=== PATIENT | male | born 1995 | race Two or more races ===

== ENCOUNTER 2023-06-20 22:14 | Observation (INO) | payer SELFPAY ==
[2023-06-20 22:18] VITALS: BP 156/68; PULSE 75; RESP 24; TEMP 36.6; O2SAT 100; BMI 53.8
[2023-06-20] MEDS: ONDANSETRON PF 4 MG/2 ML VIAL IV (22:20)
--- NOTE | 2023-06-20 22:31 | ED.NAVMDI1 ---
HPI - Nausea/Vomiting/Diarrhea General Chief complaint: Nausea/Vomiting/Diarrhea Stated complaint: Nausea/vomiting, Diarrhea Time Seen by Provider: 06/20/23 22:26 Source: patient Mode of arrival: walk-in History of Present Illness HPI Narrative: ate burger at [facility]. Ate the burger about an hour ago. Started vomiting after eating it. Also few episodes of diarrhea . Has abdominal cramping. No fever. Past history of cholecystectomy. Otherwise healthy Related Data Previous Rx's ?Medication ?Instructions ?Recorded hyoscyamine sulfate 0.125 mg 0.125 mg PO QID PRN abdominal pain 06/21/23 sublingual tablet (Levsin/SL) #30 tabs omeprazole 40 mg capsule,delayed 40 mg PO DAILY #30 caps 06/21/23 release promethazine 25 mg tablet 25 mg PO Q6H PRN nausea and 06/21/23 vomiting #30 tabs Allergies Allergy/AdvReac Type Severity Reaction Status Date / Time No Known Drug Allergies Allergy Verified 06/20/23 22:27 Review of Systems ROS Status of ROS 10 or more systems reviewed and unremarkable except as noted in history and below [facility] Medical History (Updated 06/21/23 @ 11:14 by Dino Swanson MD) Elevated WBC count ?D72.829 - Elevated white blood cell count, unspecified (ICD-10) Lactate blood increase ?R79.89 - Other specified abnormal findings of blood chemistry (ICD-10) Acute hypokalemia ?E87.6 - Hypokalemia (ICD-10) Surgical History (Updated 06/21/23 @ 05:04 by Mckenzie Jo RN) H/O chest tube placement ?Z98.890 - Other specified postprocedural states (ICD-10) History of cholecystectomy ?Z90.49 - Acquired absence of other specified parts of digestive tract (ICD-10) Social History (Updated 06/21/23 @ 05:07 by Mckenzie Jo, ELIZABETH) Within the past year, how often did you have a drink containing alcohol: monthly or less Non-prescribed substance use: cannabis (any form) Highest level of school completed/degree received: GED or equivalent Exam Constitutional Vital Signs, click to edit/add: Last Vital Signs Temp 100.4 F 06/21/23 12:00 Pulse 89 06/21/23 12:00 Resp 18 06/21/23 12:00 BP 147/77 H 06/21/23 12:00 Pulse Ox 96 06/21/23 12:00 O2 Del Method Room Air 06/21/23 12:00 Common normals: no apparent distress, average body habitus, oriented x3, no limitations, healthy appearing, alert and well nourished [facility] Common normals: normocephalic and head/scalp atraumatic Eye Common normals: PERRL, EOMs intact bilaterally and conjunctivae normal Respiratory Common normals: normal respiratory effort, no retractions, no use of accessory muscles and clear to auscultation bilaterally Cardio Common normals: regular rate, regular rhythm, S1 normal heart sound and S2 normal heart sound GI Common normals: Normal to inspection, nondistended, normoactive bowel sounds present and soft to palpation Extremity Common normals: normal to inspection and full ROM Neuro Common normals: oriented x3, CN's II-XII intact bilaterally, moves all extremities and no focal motor deficits Psych Appearance: grossly normal Course Vital Signs Vital signs: Vital Signs Temperature 97.9 F 06/20/23 22:18 Pulse Rate 75 06/20/23 22:18 Respiratory Rate 24 06/20/23 22:18 Blood Pressure 156/68 H 06/20/23 22:18 Pulse Oximetry 100 06/20/23 22:18 Oxygen Delivery Method Room Air 06/20/23 22:18 Temperature 100.4 F 06/21/23 12:00 Pulse Rate 89 06/21/23 12:00 Respiratory Rate 18 06/21/23 12:00 Blood Pressure 147/77 H 06/21/23 12:00 Pulse Oximetry 96 06/21/23 12:00 Oxygen Delivery Method Room Air 06/21/23 12:00 MDM - Nausea/Vomiting/Diarrhea MDM Narrative Medical decision making narrative: patient presents with abdominal cramping pain and recurrent vomiting. CT with mild enteritis. states symptoms started after eating hamburger at [employer]. Remains nauseated with vomiting after several treatments with anti emetics. Discussed with the hospitalist and will plan obs admission Lab Data Labs: Lab Results 06/20/23 06/20/23 06/20/23 Range/Units 22:36 23:30 23:36 WBC 11.6 H (4.0-11.0) 10^3/uL RBC 5.13 (4.70-6.10) 10^6/uL Hgb 15.1 (14.0-18.0) g/dL Hct 44.8 (42.0-54.0) % MCV 87.3 (80.0-94.0) fL MCH 29.4 (25.9-34.0) pg MCHC 33.7 (29.9-35.2) g/dL RDW 12.5 (11.0-15.0) % Plt Count 278 (150-450) 10^3/uL MPV 11.0 (9.5-13.5) fL Neut % (Auto) 70.3 (43.0-75.0) % Lymph % (Auto) 22.7 (20.5-60.0) % Runnels % (Auto) 5.8 (1.7-12.0) % Eos % (Auto) 0.6 L (0.9-7.0) % Baso % (Auto) 0.3 (0.2-2.0) % Neut # (Auto) 8.2 H (1.4-6.5) 10^3/uL Lymph # (Auto) 2.6 (1.2-3.8) 10^3/uL Runnels # (Auto) 0.7 (0.3-0.8) 10^3/uL Eos # (Auto) 0.1 (0.0-0.7) 10^3/uL Baso # (Auto) 0.0 (0.0-0.1) 10^3/uL Abs Immat Gran (auto) 0.03 (0.00-0.03) 10^3/uL Imm/Tot Granulo (auto) 0.3 (0.0-0.5) % Sodium 140 (136-145) mmol/L Potassium 3.0 L (3.5-5.1) mmol/L Chloride 103 (98-107) mmol/L Carbon Dioxide 23.3 (21.0-32.0) mmol/L Anion Gap 16.7 BUN 12.0 (7.0-18.0) mg/dL Creatinine 1.17 (0.70-1.30) mg/dL Est GFR ( Amer) >60 (>=60) Est GFR (Non-Af Amer) >60 (>=60) BUN/Creatinine Ratio 10.3 Glucose 120 H (74-106) mg/dL Lactate 2.2 H* (0.4-2.0) mmol/L Calcium 9.2 (8.5-10.1) mg/dL Magnesium 2.0 (1.8-2.4) mg/dL Total Bilirubin 0.9 (0.2-1.0) mg/dL AST 21 (15-37) U/L ALT 17 (16-63) U/L Alkaline Phosphatase 89 (46-116) U/L Total Protein 7.5 (6.4-8.2) g/dL Albumin 4.5 (3.4-5.0) g/dL Globulin 3.0 g/dL Albumin/Globulin Ratio 1.5 Lipase 19.0 (16.0-77.0) U/L Urine Opiates Screen (NEGATIVE) Ur Buprenorphine Scrn (NEGATIVE) Ur Oxycodone Screen (NEGATIVE) Urine Methadone Screen (NEGATIVE) Ur Barbiturates Screen (NEGATIVE) U Tricyclic Antidepress (NEGATIVE) Ur Phencyclidine Scrn (NEGATIVE) Ur Amphetamines Screen (NEGATIVE) U Methamphetamines Scrn (NEGATIVE) U Benzodiazepines Scrn (NEGATIVE) Urine Cocaine Screen (NEGATIVE) U Cannabinoids Screen (NEGATIVE) Influenza Type A Ag Negative Influenza Type B Ag Negative SARS-CoV-2 Ag (CV2AG) Negative (NEGATIVE) 06/21/23 06/21/23 Range/Units 00:41 01:52 WBC (4.0-11.0) 10^3/uL RBC (4.70-6.10) 10^6/uL Hgb (14.0-18.0) g/dL Hct (42.0-54.0) % MCV (80.0-94.0) fL MCH (25.9-34.0) pg MCHC (29.9-35.2) g/dL RDW (11.0-15.0) % Plt Count (150-450) 10^3/uL MPV (9.5-13.5) fL Neut % (Auto) (43.0-75.0) % Lymph % (Auto) (20.5-60.0) % Runnels % (Auto) (1.7-12.0) % Eos % (Auto) (0.9-7.0) % Baso % (Auto) (0.2-2.0) % Neut # (Auto) (1.4-6.5) 10^3/uL Lymph # (Auto) (1.2-3.8) 10^3/uL Runnels # (Auto) (0.3-0.8) 10^3/uL Eos # (Auto) (0.0-0.7) 10^3/uL Baso # (Auto) (0.0-0.1) 10^3/uL Abs Immat Gran (auto) (0.00-0.03) 10^3/uL Imm/Tot Granulo (auto) (0.0-0.5) % Sodium (136-145) mmol/L Potassium (3.5-5.1) mmol/L Chloride (98-107) mmol/L Carbon Dioxide (21.0-32.0) mmol/L Anion Gap BUN (7.0-18.0) mg/dL Creatinine (0.70-1.30) mg/dL Est GFR ( Amer) (>=60) Est GFR (Non-Af Amer) (>=60) BUN/Creatinine Ratio Glucose (74-106) mg/dL Lactate 1.8 (0.4-2.0) mmol/L Calcium (8.5-10.1) mg/dL Magnesium (1.8-2.4) mg/dL Total Bilirubin (0.2-1.0) mg/dL AST (15-37) U/L ALT (16-63) U/L Alkaline Phosphatase (46-116) U/L Total Protein (6.4-8.2) g/dL Albumin (3.4-5.0) g/dL Globulin g/dL Albumin/Globulin Ratio Lipase (16.0-77.0) U/L Urine Opiates Screen Negative (NEGATIVE) Ur Buprenorphine Scrn Negative (NEGATIVE) Ur Oxycodone Screen Negative (NEGATIVE) Urine Methadone Screen Negative (NEGATIVE) Ur Barbiturates Screen Negative (NEGATIVE) U Tricyclic Antidepress Negative (NEGATIVE) Ur Phencyclidine Scrn Negative (NEGATIVE) Ur Amphetamines Screen Negative (NEGATIVE) U Methamphetamines Scrn Negative (NEGATIVE) U Benzodiazepines Scrn Negative (NEGATIVE) Urine Cocaine Screen Negative (NEGATIVE) U Cannabinoids Screen Positive A (NEGATIVE) Influenza Type A Ag Influenza Type B Ag SARS-CoV-2 Ag (CV2AG) (NEGATIVE) Imaging Data Chest x-ray: Radiologist's impression: ITS Impressions Abdomen/Pelvis CT 06/21/23 00:04 IMPRESSION: 1. Mild wall thickening in multiple nondilated abdominal and upper pelvic small bowel loops may be top-normal or reflect mild enteritis. 2. Mild wall thickening throughout much of the largely decompressed colon could reflect colonic decompression but is suspicious for mild colitis. Mild abdominal and pelvic free fluid is reactive. No loculated fluid or free air is seen. There are no additional acute findings in the abdomen or pelvis. 3. Normal appendix. Electronically authenticated by: LUIS FOURNIER Date: 06/21/2023 01:17 Discharge Plan Discharge Chief Complaint: Nausea/Vomiting/Diarrhea Clinical Impression: Intractable nausea and vomiting Patient Disposition: Admitted as Observation Condition: Fair Discharge Date/Time: 06/21/23 02:17
[2023-06-20 22:53] LABS: Basophils Percent Auto 0.3 % (0.2-2.0); Eosinophils Absolute Auto 0.1 10^3/uL (0.0-0.7); Eosinophils Percent Auto 0.6 % (0.9-7.0); Hematocrit 44.8 % (42.0-54.0); Hemoglobin 15.1 g/dL (14.0-18.0); Immature Granulocytes Abs Auto 0.03 10^3/uL (0.00-0.03); Immature Granulocytes Pct Auto 0.3 % (0.0-0.5); Lymphocytes Absolute Auto 2.6 10^3/uL (1.2-3.8); Lymphocytes Percent Auto 22.7 % (20.5-60.0); Mean Corpuscular HGB Conc 33.7 g/dL (29.9-35.2); Mean Corpuscular Hemoglobin 29.4 pg (25.9-34.0); Mean Corpuscular Volume 87.3 fL (80.0-94.0); Monocytes Absolute Auto 0.7 10^3/uL (0.3-0.8); Monocytes Percent Auto 5.8 % (1.7-12.0); Neutrophils Absolute Auto 8.2 10^3/uL (1.4-6.5); Neutrophils Percent Auto 70.3 % (43.0-75.0); Platelet Count 278 10^3/uL (150-450); Red Blood Count 5.13 10^6/uL (4.70-6.10); Red Cell Distribution Width 12.5 % (11.0-15.0); White Blood Count 11.6 10^3/uL (4.0-11.0)
[2023-06-20] MEDS: FENTANYL CITRATE/PF 100 MCG/2 ML VIAL 50 MCG IV (22:54)
[2023-06-20] MEDS: 0.9 % SODIUM CHLORIDE 1,000 ML 999 ML IV (22:55)
[2023-06-20 23:04] LABS: Alanine Aminotransferase 17 U/L (16-63); Albumin Globulin Ratio 1.5; Albumin Level 4.5 g/dL (3.4-5.0); Alkaline Phosphatase 89 U/L (46-116); Anion Gap 16.7; Aspartate Amino Transferase 21 U/L (15-37); BUN Creatinine Ratio 10.3; Bilirubin Total 0.9 mg/dL (0.2-1.0); Calcium 9.2 mg/dL (8.5-10.1); Carbon Dioxide 23.3 mmol/L (21.0-32.0); Chloride 103 mmol/L (98-107); Estimated GFR (African America >60 (>=60); Estimated GFR (Non-African Ame >60 (>=60); Glucose 120 mg/dL (74-106); Sodium 140 mmol/L (136-145); Total Protein 7.5 g/dL (6.4-8.2)
[2023-06-20 23:16] LABS: Lactate/Lactic Acid 2.2 mmol/L (0.4-2.0)
[2023-06-20] MEDS: DIPHENHYDRAMINE HCL 50 MG/ML (1ML) VIAL IV (23:20)
[2023-06-20] MEDS: METOCLOPRAMIDE HCL 10 MG/2 ML VIAL IVP (23:20)
[2023-06-21] VITALS (9 sets, daily range): BP systolic 147–162; BP diastolic 77–95; PULSE 63–89; RESP 18–24; TEMP 36.6–38; O2SAT 96–100; BMI 23.3
[2023-06-21 00:03] LABS: SARS-CoV-2 Ag NEGATIVE (NEGATIVE)
--- NOTE | 2023-06-21 00:04 | CT_ITS ---
The [address] [address] Patient Name: ANDRE SOLANO MRN: [id number] date: 1995 Sex: M Assigned Patient Location: ER Current Patient Location: ER Accession/Order Number: [id number] Exam Date: 06/21/2023 00:24 Report Date: 06/21/2023 01:17 At the request of: WALLACE SUNG Procedure: CT abdomen pelvis w con EXAM: CT abdomen pelvis w con HISTORY: vomiting COMPARISON: None. TECHNIQUE: IV contrast enhanced CT imaging of the abdomen and pelvis was performed using 100 mL of Omnipaque 300 intravenous contrast. Sagittal and coronal reconstructions are provided. Dose reduction techniques were achieved by using automated exposure control and/or adjustment of mA and/or kV according to patient size and/or use of iterative reconstruction technique. FINDINGS: CT ABDOMEN: The lung bases are clear. The heart is unremarkable. Cholecystectomy clips are present. There is no biliary ductal dilatation. The liver, pancreas, spleen, adrenal glands, kidneys, aorta, IVC, and stomach appear unremarkable. There is mild wall thickening in multiple nondistended abdominal and pelvic small bowel loops. CT PELVIS: A normal appendix is seen on images 75-84. There is nonspecific mild wall thickening throughout most of the largely decompressed colon. There is mild wall thickening in multiple fluid-filled nondilated pelvic small bowel loops. The urinary bladder and prostate appear normal. There is a small volume abdominal and pelvic free fluid. No loculated fluid or free air is seen. There is a surgical clip in the right posterior pelvis on image 110. No acute osseous abnormality or suspicious bony lesion is seen. CT/CT abdomen pelvis w con IMPRESSION: 1. Mild wall thickening in multiple nondilated abdominal and upper pelvic small bowel loops may be top-normal or reflect mild enteritis. 2. Mild wall thickening throughout much of the largely decompressed colon could reflect colonic decompression but is suspicious for mild colitis. Mild abdominal and pelvic free fluid is reactive. No loculated fluid or free air is seen. There are no additional acute findings in the abdomen or pelvis. 3. Normal appendix. Electronically authenticated by: LUIS FOURNIER Date: 06/21/2023 01:17
[2023-06-21 00:06] LABS: Influenza Virus A Antigen Negative; Influenza Virus B Antigen Negative; Internal Control Within Normal Limits
[2023-06-21] MEDS: 0.9 % SODIUM CHLORIDE 1,000 ML 1000 ML IV (00:15)
[2023-06-21] MEDS: FENTANYL CITRATE/PF 100 MCG/2 ML VIAL IV (00:17)
[2023-06-21 01:03] LABS: Lactate/Lactic Acid 1.8 mmol/L (0.4-2.0)
[2023-06-21] MEDS: ONDANSETRON PF 4 MG/2 ML VIAL IV (01:25)
[2023-06-21 02:11] LABS: Amphetamine Screen Urine NEGATIVE (NEGATIVE); Barbiturates Screen Urine NEGATIVE (NEGATIVE); Benzodiazepines Screen Urine NEGATIVE (NEGATIVE); Buprenorphine Screen Urine NEGATIVE (NEGATIVE); Cannabinoid Screen Urine POSITIVE (NEGATIVE); Cocaine Screen Urine NEGATIVE (NEGATIVE); Methadone Screen Urine NEGATIVE (NEGATIVE); Methamphetamines Screen Urine NEGATIVE (NEGATIVE); Opiate Screen Urine NEGATIVE (NEGATIVE); Oxycodone Screen Urine NEGATIVE (NEGATIVE); Phencyclidine Screen Urine NEGATIVE (NEGATIVE); Tricyclic Antidepressant Urine NEGATIVE (NEGATIVE)
[2023-06-21] MEDS: 0.9 % SODIUM CHLORIDE 1,000 ML 999 ML IV (02:14)
--- NOTE | 2023-06-21 02:22 | PC.NURSE ---
Patient arrived to room 218 per ER cart. Admission completed as charted. Patient requesting medication for pain and nausea. PULP COOKER to be notified.
--- NOTE | 2023-06-21 02:43 | PC.NURSE ---
patient report vomiting,abd pain, and diarrhea since he at [employer] an hour ago. patient had history of cholecystectomy last november. patient states he smoke marijuana but has not felt like this before.
[2023-06-21] MEDS: PROCHLORPERAZINE 10 MG/2 ML VIAL IV ×2 (02:49→08:38)
[2023-06-21] MEDS: POTASSIUM CHLORIDE IN WATER 10 MEQ/100 ML PIGGYBACK 100 MEQ IV ×4 (02:50→06:10)
--- NOTE | 2023-06-21 03:07 | PC.NURSE ---
Leelee JORDAN notified of patient requesting pain and nausea medication. Responded at 0329. New orders received.
--- NOTE | 2023-06-21 03:18 | PC.NURSE ---
Patient admits to THC use. Last use was 06/20/2023. Currently not an illegal drug in [place].
[2023-06-21] MEDS: 0.9 % SODIUM CHLORIDE 1,000 ML 150 ML IV ×2 (03:26→09:58)
[2023-06-21] MEDS: PANTOPRAZOLE SODIUM 40 MG VIAL IV (03:59)
[2023-06-21] MEDS: PROMETHAZINE HCL 25 MG/ML VIAL 12.5 MG IV (04:03)
--- NOTE | 2023-06-21 04:16 | PC.NURSE ---
Leelee [employer]ER notified of patient refusing Toradol as ordered stating I didn't like how it made me feel. No new orders received.
[2023-06-21 04:20] LABS: Hematocrit 39.8 % (42.0-54.0); Hemoglobin 13.3 g/dL (14.0-18.0); Mean Corpuscular HGB Conc 33.4 g/dL (29.9-35.2); Mean Corpuscular Hemoglobin 29.9 pg (25.9-34.0); Mean Corpuscular Volume 89.4 fL (80.0-94.0); Mean Platelet Volume 10.9 fL (9.5-13.5); Platelet Count 188 10^3/uL (150-450); Red Blood Count 4.45 10^6/uL (4.70-6.10); Red Cell Distribution Width 12.4 % (11.0-15.0)
[2023-06-21 04:32] LABS: Anion Gap 12.2; BUN Creatinine Ratio 8.3; Calcium 8.4 mg/dL (8.5-10.1); Carbon Dioxide 24.4 mmol/L (21.0-32.0); Chloride 108 mmol/L (98-107); Estimated GFR (African America >60 (>=60); Estimated GFR (Non-African Ame >60 (>=60); Glucose 118 mg/dL (74-106); Potassium 3.6 mmol/L (3.5-5.1); Sodium 141 mmol/L (136-145)
--- NOTE | 2023-06-21 06:39 | PC.NURSE ---
Patient complaining of pain 06/14. Requesting pain medication. Dr. Swanson notified. Awaiting response.
[2023-06-21] MEDS: ACETAMINOPHEN 500 MG TABLET 1000 MG PO (08:38)
[2023-06-21 11:14] LABS: Glucometer 98 mg/dL (74-106)
--- NOTE | 2023-06-21 11:31 | P.HP_ITS ---
HPI H&P: HPI History of Present Illness Chief complaint: Nausea/vomiting, Diarrhea Narrative: 27 y/o male to ER with nausea, vomiting and diarrhea. Patient ate a hamburger from [employer] and about 1 hour later developed nausea and emesis. Developed abdominal cramping and discomfort worse in epigastric region. Mild diarrhea. Continued nausea and emesis and to ER. WBC and lactate slightly elevated from emesis, no evidence of sepsis. LFTs normal. CT with changes of mild enteritis and colitis. Gave zofran, compazine, reglan, and phenergan with continued symptoms. Urine tox screen positive for THC. Admitted for monitoring. Started IV fluids and clear liquid diet. C/o mild cramping in epigastric region. Abdominal pain improved with tylenol. Reports daily THC intake. Overall symptoms improved and wants to go home. Opioid HPI Opioid Management Most Recent Opioid Data: Last Pain Assessment 06/21/23 10:00 Last MAR Pain Assessment 06/21/23 09:58 Last ORT Total Score 1 06/21/23 02:33 Last ORT Risk Category Low Risk 06/21/23 02:33 Ur Phencyclidine Scrn Negative (NEGATIVE) 06/21/23 01:52 Review of Systems ROS Constitutional Denies: fever, chills or fatigue Cardiovascular Denies: chest pain, palpitations or edema Respiratory Denies: shortness of breath, cough or wheezing Gastrointestinal Reports: abdominal pain, nausea, vomiting, heartburn and diarrhea Genitourinary Denies: painful [facility]ination [facility] History (Updated 06/21/23 @ 11:14 by Dino Swanson MD) Elevated WBC count ?D72.829 - Elevated white blood cell count, unspecified (ICD-10) Lactate blood increase ?R79.89 - Other specified abnormal findings of blood chemistry (ICD-10) Acute hypokalemia ?E87.6 - Hypokalemia (ICD-10) Surgical History (Updated 06/21/23 @ 05:04 by Mckenzie Jo RN) H/O chest tube placement ?Z98.890 - Other specified postprocedural states (ICD-10) History of cholecystectomy ?Z90.49 - Acquired absence of other specified parts of digestive tract (ICD-10) Social History (Updated 06/21/23 @ 05:07 by Mckenzie A Jo, RN) Within the past year, how often did you have a drink containing alcohol: monthly or less Non-prescribed substance use: cannabis (any form) Highest level of school completed/degree received: GED or equivalent Meds Home Medications and Allergies Home Medications Medication Instructions Recorded Confirmed Type hyoscyamine sulfate 0.125 mg 0.125 mg PO QID PRN abdominal pain 06/21/23 Rx sublingual tablet (Levsin/SL) #30 tabs omeprazole 40 mg capsule,delayed 40 mg PO DAILY #30 caps 06/21/23 Rx release promethazine 25 mg tablet 25 mg PO Q6H PRN nausea and 06/21/23 Rx vomiting #30 tabs Allergies Allergy/AdvReac Type Severity Reaction Status Date / Time No Known Drug Allergies Allergy Verified 06/20/23 22:27 Exam Constitutional Vital Signs, click to edit/add: Last Vital Signs Temp 98.6 F 06/21/23 08:00 Pulse 80 06/21/23 08:00 Resp 18 06/21/23 08:00 BP 156/79 H 06/21/23 08:00 Pulse Ox 98 06/21/23 08:00 O2 Del Method Room Air 06/21/23 08:00 Documenting provider has reviewed patient's vital signs: yes Common normals: no apparent distress, oriented x3 and alert HENMT Common normals: normocephalic Eye Common normals: PERRL and EOMs intact bilaterally Respiratory Common normals: normal respiratory effort and clear to auscultation bilaterally Cardio Common normals: regular rate, regular rhythm, no gallops, no murmurs and no rub GI Common normals: soft to palpation Auscultation: normoactive bowel sounds Palpation: tender Details: epigastric; no guarding Extremity Common normals: no pedal edema Results Labs Labs: Short CBC 06/20/23 06/21/23 Range/Units 22:36 04:10 WBC 11.6 H 11.0 (4.0-11.0) 10^3/uL Hgb 15.1 13.3 L (14.0-18.0) g/dL Hct 44.8 39.8 L (42.0-54.0) % Plt Count 278 188 (150-450) 10^3/uL BMP 06/20/23 06/21/23 22:36 04:10 Sodium 140 141 Potassium 3.0 L 3.6 Chloride 103 108 H Carbon Dioxide 23.3 24.4 BUN 12.0 9.0 Creatinine 1.17 1.08 Glucose 120 H 118 H Calcium 9.2 8.4 L Liver Function 06/20/23 Range/Units 22:36 Total Bilirubin 0.9 (0.2-1.0) mg/dL AST 21 (15-37) U/L ALT 17 (16-63) U/L Alkaline Phosphatase 89 (46-116) U/L Albumin 4.5 (3.4-5.0) g/dL Imaging CT scan - abdomen: Attestation: I have reviewed the pertinent imaging results. Assessment and Plan Assessment and Plan (1) Intractable nausea and vomiting: (2) Marijuana abuse, continuous: (3) Gastritis: Plan Presented with nausea and vomiting but improved overnight. Urine positive for THC and discussed potential cyclic vomiting. Tolerating clear liquids and wants to go home. Discharged home in stable condition. Continue clear liquids and gradually advance as tolerated. Start omeprazole for likely gastritis. Use phenergan and levsin PRN.
--- NOTE | 2023-06-23 14:56 | CM.DCFOLLOWU ---
06/22- No answer 1st attempt
--- NOTE | 2023-06-24 15:54 | CM.DCFOLLOWU ---
06/23- 2nd attempt. No answer
--- NOTE | 2023-06-25 14:07 | CM.NOTE ---
06/25/23 14:05 3rd attempt to make Discharge followup call and no answer.
== END 2023-06-21 13:05 | disposition home or self-care (01) ==
LOC: ER 06-21 01:32 → MS 06-21 11:14
PROVIDERS: Internal Medicine; Registered Nurse; Admitting Provider Family Medicine; Emergency Provider Internal Medicine; Visit Provider Family Medicine
DX: K29.70 Gastritis, unspecified, without bleeding (principal); R11.2 Nausea with vomiting, unspecified; F12.10 Cannabis abuse, uncomplicated; Z20.822 Contact with and (suspected) exposure to COVID-19; Z90.49 Acquired absence of other specified parts of digestive tract; Z98.890 Other specified postprocedural states; Z79.899 Other long term (current) drug therapy
CPT/HCPCS: 36415; 74177; 80048; 80053; 80307; 83605; 83690; 83735; 85025; 85027; 87635; 87804; 87811; 96361; 96365; 96366; 96375; 96376; 99285; G0378; Q9967